=== PATIENT | female | born 1940 | race Caucasian/White ===

== ENCOUNTER → 2016-07-16 | Outpatient (CLI) | payer MEDICARE ==
[~2016-07-16] MED LIST: ACTO15TA11 PO; ASPI81CH7 CHEW; ASPI81TA45 PO; CIPR500T4 PO; FENO50TA PO; FERR324T4 PO; FERR325T PO; FEXO15TA PO; FEXO180 PO; LEVO.1 PO; LEXA20TA PO; LISI10TA PO; LORTA5 PO; NAPR500 OR; PIOG15 PO; TRAM50 PO
[2016-07-16 12:45] LABS: FREE T4 2.52 NG/DL (0.76-1.46)
[2016-07-18 23:57] LABS: THYROGLOB ABS 210 IU/mL (< OR = 1)
== END ==
LOC: CLAB 11:38
DX: E03.9 Hypothyroidism, unspecified (principal)
CPT/HCPCS: 36415; 84439; 84443; 86376; 86800

== ENCOUNTER 2016-08-20 14:15 | Emergency (ER) | payer MEDICARE ==
[~2016-08-20 14:15] MED LIST changes: -ACTO15TA11 PO; -ASPI81CH7 CHEW; -FERR325T PO; -FEXO15TA PO
[2016-08-20 14:19] VITALS: BP 109/51; PULSE 82; RESP 14; TEMP 97.9; O2SAT 98
--- NOTE | 2016-08-20 14:22 | PD ---
HPI Chief Complaint: FALL Time Seen by Provider: 14:21 Travel History International Travel<30 days: No Contact w/Intl Traveler<30days: No History of Present Illness HPI 75-year-old female with history of DM, HTN, CVA presents to the ED by EMS after mechanical fall. Patient states that she was going to visit her daughter after having lab work drawn this morning. She states she got to the top of the second step, lost her balance and fell backwards, striking her head in the process. She denies loss of consciousness. She has taken a few steps since the fall. On presentation the patient denies headache, dizziness, neck pain, back pain, abdominal pain, nausea, vomiting, numbness, tingling, weakness or limitations to range of motion of the extremities. She states that she was fasting for her labs but denies dizziness, near-syncope or syncope as the cause of this episode. Patient states tetanus immunization up-to-date. PFSH Past Medical History Arthritis: Yes Anxiety: Yes Depression: No Cancer: No Cardiovascular Problems: No High Cholesterol: Yes Chest Pain: No Congestive Heart Failure: No Cerebrovascular Accident: Yes (DX CVA this admit) Diabetes: Yes Endocrine: No Glaucoma: No Genitourinary: No Hepatitis: No Hiatal Hernia: No Hypertension: Yes Immune Disorder: No Musculoskeletal: Yes Neurologic: Yes Psychiatric: No Reproductive: No Respiratory: No Migraines: Yes Seizures: No Thyroid Disease: Yes Past Surgical History Abdominal Surgery: Yes (APPENDECTOMY, TUMOR REMOVED) Gynecologic Surgery: Yes (TUBAL LIGATION) Oral Surgery: Yes (TONSILS) Pacemaker: No Tonsillectomy: Yes Other Surgery: Yes Social History Alcohol Use: Yes (RARELY) Tobacco Use: No Substance Use: No Allergies-Medications (Allergen,Severity, Reaction): Coded Allergies: Coumadin (Verified Allergy, Severe, excessive bleeding, 08/20/16) Penicillin (Verified Allergy, Severe, CLOSES THROAT, 08/20/16) Reported Meds & Prescriptions Reported Meds & Active Scripts Active Reported Ferrous Sulfate 325 Mg Tab 325 Mg PO DAILY Tricor (Fenofibrate) 145 Mg Tab 145 Mg PO DAILY Takw with food. Synthroid (Levothyroxine Sodium) 100 Mcg Tab 100 Mcg PO DAILY Lisinopril-Hctz 10-12.5 Mg Tab 1 Tab PO DAILY Lexapro (Escitalopram Oxalate) 20 Mg Tab 20 Mg PO DAILY Aspirin Children's (Aspirin) 81 Mg Chew 81 Mg CHEW DAILY Actos (Pioglitazone HCl) 15 Mg Tab 15 Mg PO DAILY Cat Allergy (Fexofenadine HCl) 180 Mg Tab 180 Mg PO DAILY Review of Systems Except as stated in HPI: all other systems reviewed are Neg Physical Exam Narrative GENERAL: Well-nourished, well-developed white female in no acute distress. Alert, oriented. SKIN: Warm and dry. There is a subcentimeter abrasion on the posterior aspect of the occiput. There is a 1 cm skin tear on the anterior aspect of the right chakraborty. There is a 2 cm linear abrasion on the anterior aspect of the right chakraborty. No active bleeding. Thorough evaluation reveals no other edema, ecchymosis, abrasion, or laceration of the skin. HEAD: Normocephalic. Atraumatic. No raccoon eyes or hernandez sign. No tenderness to palpation of the skull. No bony step-offs. No malocclusion of the teeth. EYES: No scleral icterus. No injection or drainage. PERRLA. EOMI. ENT: [place] tympanic membranes bilaterally. Nasal mucosa is moist. Oropharynx without erythema, edema or exudate. NECK: Supple, trachea midline. No JVD or lymphadenopathy. No midline tenderness to palpation. Patient retains full, active, painless range of motion of the neck. CARDIOVASCULAR: Regular rate and rhythm without murmurs, gallops, or rubs. 2+ DP and radial pulses bilaterally. No tenderness to palpation over the precordium. RESPIRATORY: Breath sounds clear and equal bilaterally. No accessory muscle use. GASTROINTESTINAL: Abdomen soft, non-tender, nondistended. + Bowel sounds MUSCULOSKELETAL: No cyanosis, or edema. No tenderness to palpation or limitations to range of motion of the joints of the upper and lower extremities bilaterally. NEUROLOGICAL: Awake and alert. Cranial nerves II through XII intact. Motor and sensory grossly within normal limits. 5/5 muscle strength in all muscle groups. Normal speech. BACK: Nontender without obvious deformity. No CVA tenderness. No midline tenderness. Data Data Last Documented VS Vital Signs Date Time Temp Pulse Resp B/P Pulse Ox O2 Delivery O2 Flow Rate FiO2 08/20/16 14:19 97.9 82 14 109/[address] Brain W/O Iv Contrast(Rout) (08/20/16 14:20) Ct Cerv Spine W/O Contrast (08/20/16 14:20) Blood Glucose (08/20/16 14:28) Ibuprofen (Motrin) (08/20/16 15:30) Ice/Cold Pack (08/20/16 15:29) MDM Medical Decision Making Medical Screen Exam Complete: Yes Emergency Medical Condition: Yes Differential Diagnosis Musculoskeletal pain versus abrasion versus laceration versus less likely ICH versus cervical spinal injury versus other Narrative Course 75-year-old female with history of DM, HTN, CVA presents to the ED by EMS after mechanical fall. Patient states that she was going to visit her daughter after having lab work drawn this morning. She states she got to the top of the second step, lost her balance and fell backwards, striking her head in the process. She denies loss of consciousness. She has taken a few steps since the fall. On presentation the patient denies headache, dizziness, neck pain, back pain, abdominal pain, nausea, vomiting, numbness, tingling, weakness or limitations to range of motion of the extremities. She states that she was fasting for her labs but denies dizziness, near-syncope or syncope as the cause of this episode. Tetanus up-to-date according to the patient. Vitals reviewed and within normal limits. Bedside blood glucose 101. Physical exam reveals an alert and oriented white female in no acute distress. There is a subcentimeter abrasion on the posterior occipital. There is a small skin tear and a linear abrasion on the right anterior chakraborty. No focal neurological deficits. No midline tenderness of the spine. No limitations to range of motion or loss of strength of the extremities. Wounds were cleaned and dressings were applied. 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 CT of the head reveals advanced multilevel degenerative changes, no fracture per radiology read. Patient complained of generalized pain to the course of evaluation. States that she takes ibuprofen for aches and pains at home. She is administered 600 mg ibuprofen. Patient was offered a snack, allowed to eat before walk testing. She is observed to walk with a normal gait. This is musculoskeletal pain and abrasions following a mechanical fall on stairs. The patient was instructed to rest, hydrate, return to normal, gentle activities as tolerated, minimize time in bed, continue with [id number] pain medications as needed, follow up with the primary care provider. Discussed reasons to return to the ED. She indicated understanding of her discharge instructions and is amenable to the plan of care. This patient is stable and discharged home. Diagnosis Primary Impression: Fall (on) (from) other stairs and steps, initial encounter Additional Impressions: Abrasion head Abrasion of right lower leg Qualified Code: S80.811A - Abrasion of right lower leg, initial encounter Referrals: Primary Care Physician Patient Instructions: Abrasion (ED), General Instructions, Musculoskeletal Pain (ED) Additional Instructions: Rest, hydrate. Too much bed rest can worsen back pain. Resume normal , gentle activities as tolerated. No strenuous physical activities for the next few days You have been involved in fall and need rest, anti-inflammatory pain medications fluids. Take [id number] pain medications such as ibuprofen as needed for headache and body aches. Applying ice or heat to areas with sore muscles may help to improve your patient. Do not apply ice/ heat for longer than 20 m/h. Follow-up with your primary care provider this week. Return to the ED for any urgent or emergent medical condition. Disposition: 01 DISCHARGE HOME Condition: Stable Aria Dutton Aug 20, 2016 14:22
[2016-08-20] MEDS ORDERED: FEXO15TA PO (14:27)
[2016-08-20] MEDS ORDERED: LEXA20TA PO (14:27)
[2016-08-20] MEDS ORDERED: LEVO.1 PO (14:27)
[2016-08-20] MEDS ORDERED: LISI10TA PO (14:27)
[2016-08-20] MEDS ORDERED: ASPI81CH7 CHEW (14:27)
[2016-08-20] MEDS ORDERED: ACTO15TA11 PO (14:27)
[2016-08-20] MEDS ORDERED: FENO50TA PO (14:27)
[2016-08-20] MEDS ORDERED: FERR325T PO (14:27)
--- NOTE | 2016-08-20 15:11 | RADHPO ---
EXAM DATE/TIME: 08/20/2016 14:36 [facility] COMPARISON: No previous studies available for comparison. INDICATIONS : Fell and hit back of head. Pain. RADIATION DOSE: 54.91 CTDIvol (mGy) MEDICAL HISTORY : Hypertension. Diabetes. SURGICAL HISTORY : Appendectomy. ENCOUNTER: Initial ACUITY: 1 day PAIN SCALE: 4/10 LOCATION: occipital TECHNIQUE: Multiple contiguous axial images were obtained of the head. Using automated exposure control and adj ustment of the mA and/or kV according to patient size, radiation dose was kept as low as reasonably a chievable to obtain optimal diagnostic quality images. FINDINGS: CEREBRUM: The ventricles are normal for age. Scattered areas of low-attenuation throughout the white matter. No evidence of midline shift, mass lesion, hemorrhage or acute infarction. No extra-axial fluid collec tions are seen. POSTERIOR FOSSA: The cerebellum and brainstem are intact. The 4th ventricle is midline. The cerebellopontine angle i s unremarkable. EXTRACRANIAL: The visualized portion of the orbits is intact. SKULL: The calvaria is intact. No evidence of skull fracture. CONCLUSION: 1. Chronic ischemic small vessel vasculopathy. 2. No acute intracranial abnormality. Anthony Richardson MD on August 20, 2016 at 15:05 Board Certified Radiologist. This report was verified electronically.
--- NOTE | 2016-08-20 15:18 | RADHPO ---
EXAM DATE/TIME: 08/20/2016 14:36 [facility] COMPARISON: No previous studies available for comparison. INDICATIONS : Fell and hit back of head. Pain. RADIATION DOSE: 26.61CTDIvol (mGy) MEDICAL HISTORY : Hypertension. Diabetes. SURGICAL HISTORY : Appendectomy. ENCOUNTER: Initial ACUITY: 1 day PAIN SCALE: 4/10 LOCATION: neck TECHNIQUE: Volumetric scanning of the cervical spine was performed. Multiplanar reconstructions in the sagittal, coronal and oblique axial planes were performed. Using automated exposure control and adjustment o f the mA and/or kV according to patient size, radiation dose was kept as low as reasonably achievable to obtain optimal diagnostic quality images. FINDINGS: VERTEBRAE: Normal vertebral body height. Craniocervical junction intact. No fracture. ALIGNMENT: No evidence of subluxation. Facets are well aligned. CONCLUSION: 1. Advanced multilevel degenerative changes. 2. No fracture. Anthony Richardson MD on August 20, 2016 at 15:10 Board Certified Radiologist. This report was verified electronically.
[2016-08-20] MEDS ORDERED: IBUPROFEN 600 MG TAB PO ONE (15:30)
== END 2016-08-20 15:55 | disposition home or self-care (01) ==
LOC: PHEFT 14:15
DX: S00.81XA Abrasion of other part of head, initial encounter (principal); S80.811A Abrasion, right lower leg, initial encounter; E11.9 Type 2 diabetes mellitus without complications; I10 Essential (primary) hypertension; E03.9 Hypothyroidism, unspecified; E78.00 Pure hypercholesterolemia, unspecified; W10.8XXA Fall (on) (from) other stairs and steps, initial encounter; Z79.84 Long term (current) use of oral hypoglycemic drugs; Z87.39 Personal history of other diseases of the musculoskeletal system and connective tissue; Z86.59 Personal history of other mental and behavioral disorders; Z86.73 Personal history of transient ischemic attack (TIA), and cerebral infarction without residual deficits; Z86.69 Personal history of other diseases of the nervous system and sense organs
CPT/HCPCS: 36415; 70450; 72125; 84439; 84443; 84481

== ENCOUNTER → 2016-08-20 | Outpatient (CLI) | payer MEDICARE ==
[2016-08-20 13:42] LABS: FREE T3 2.46 PG/ML (2.18-3.98); FREE T4 1.54 NG/DL (0.76-1.46)
== END ==
LOC: CLAB 12:41
DX: E03.9 Hypothyroidism, unspecified (principal)
CPT/HCPCS: 36415; 70450; 72125; 84439; 84443; 84481

== ENCOUNTER → 2016-11-07 | Outpatient (CLI) | payer MEDICARE ==
[~2016-11-07] MED LIST changes: +ACTO15TA11 PO; +ASPI81CH7 CHEW; -ASPI81TA45 PO; -CIPR500T4 PO; -FERR324T4 PO; +FERR325T PO; +FEXO15TA PO; -FEXO180 PO; -LORTA5 PO; -NAPR500 OR; -PIOG15 PO; -TRAM50 PO
[2016-11-07 12:48] LABS: FREE T4 1.75 NG/DL (0.76-1.46)
[2016-11-08 19:52] LABS: THYROGLOB ABS 483 IU/mL (< OR = 1)
== END ==
LOC: CLAB 11:33
PROVIDERS: ATTEND Internal Medicine Endocrinology, Diabetes & Metabolism
DX: E03.9 Hypothyroidism, unspecified (principal)
CPT/HCPCS: 36415; 84439; 84443; 86376; 86800

== ENCOUNTER → 2016-12-19 | Outpatient (CLI) | payer MEDICARE ==
[2016-12-19 14:12] LABS: HEMATOCRIT 33.4 % (35.0-46.0); MEAN CORPUSCULAR HEMOGLOBIN 30.5 PG (27.0-34.0); MEAN CORPUSCULAR HGB CONC 33.1 % (32.0-36.0); PLATELET COUNT 146 TH/MM3 (150-450); RED BLOOD COUNT 3.63 MIL/MM3 (4.00-5.30); REVIEW FLAG FINAL; WHITE BLOOD COUNT 5.9 TH/MM3 (4.0-11.0)
[2016-12-19 14:18] LABS: ANION GAP 6 MEQ/L (5-15); AST (GOT) 21 U/L (15-37); BICARBONATE 25.4 MEQ/L (21.0-32.0); BLOOD UREA NITROGEN 26 MG/DL (7-18); CHLORIDE 112 MEQ/L (98-107); GLOMERULAR FILTRATION RATE 37 ML/MIN (>89); GLUCOSE,FASTING 95 MG/DL (74-99); POTASSIUM 4.6 MEQ/L (3.5-5.1); SODIUM (NA) 143 MEQ/L (136-145)
[2016-12-19 14:27] LABS: ALKALINE PHOSPHATASE 100 U/L (45-117); ALT (GPT) 20 U/L (10-53); FREE T4 1.57 NG/DL (0.76-1.46); HDL CHOLESTEROL 58.1 MG/DL (40.0-60.0); LDL CHOLESTEROL 116 MG/DL (0-99); TOTAL BILIRUBIN ADULT 0.4 MG/DL (0.2-1.0); TRANSFERRIN IRON PROFILE 270 MG/DL (200-360)
== END ==
LOC: CLAB 13:24
PROVIDERS: ATTEND Family Medicine
DX: D50.0 Iron deficiency anemia secondary to blood loss (chronic) (principal); E50.0 Vitamin A deficiency with conjunctival xerosis; E78.2 Mixed hyperlipidemia; E03.9 Hypothyroidism, unspecified
CPT/HCPCS: 36415; 80053; 80061; 83540; 83550; 84439; 84443; 85027

== ENCOUNTER → 2017-01-24 | Outpatient (CLI) | payer MEDICARE ==
[2017-01-24 12:39] LABS: FREE T4 1.87 NG/DL (0.76-1.46)
== END ==
LOC: CLAB 11:27
PROVIDERS: ATTEND Internal Medicine Endocrinology, Diabetes & Metabolism
DX: E03.9 Hypothyroidism, unspecified (principal)
CPT/HCPCS: 36415; 84439; 84443

== ENCOUNTER → 2017-07-28 | Outpatient (CLI) | payer MEDICARE ==
[~2017-07-28] MED LIST changes: -ACTO15TA11 PO; +ACTO15TA22 PO
[2017-07-28 13:53] LABS: FREE T4 1.42 NG/DL (0.76-1.46)
== END ==
LOC: CLAB 12:50
DX: E03.9 Hypothyroidism, unspecified (principal)
CPT/HCPCS: 36415; 84439; 84443

== ENCOUNTER → 2017-08-28 | Outpatient (CLI) | payer MEDICARE ==
[2017-08-28 15:42] LABS: FREE T4 1.61 NG/DL (0.76-1.46)
== END ==
LOC: CLAB 14:57
DX: E03.9 Hypothyroidism, unspecified (principal)
CPT/HCPCS: 36415; 84439; 84443